=== PATIENT | female | born 1955 | race Caucasian/White ===

== ENCOUNTER 2018-12-27 09:12 | Inpatient (IN) | payer MEDICARE, MEDICAID ==
[~2018-12-27] VITALS: Ht 167.6 cm; Wt 86.6 kg
--- NOTE | ~2018-12-27 | D ---
[address] [address] DISCHARGE SUMMARY Name: GLORYANUP TRACEY Room: [address] IN M.R.#: [id number] Admission: 12/28/18 Attend Phys: Bradley Lyn MD, F Discharge: 12/29/18 Date of : 53 Report #: [id number] THIS REPORT FOR: //name// CC: Jazzy Crow DATE OF SERVICE: 12/29/2018 DISCHARGE DIAGNOSES: 1. Sick sinus syndrome. 2. Paroxysmal atrial fibrillation. CONSULTANTS: None. PROCEDURES: Implantation of permanent dual chamber pacemaker through the left subclavian vein. HISTORY OF PRESENT ILLNESS: The patient is a 63-year-old single white female who was brought to the outpatient department to undergo implantation of a permanent dual chamber pacemaker. The patient has a long history of paroxysmal atrial fibrillation. She apparently had a cardiac catheterization back in 2009 that showed no significant coronary artery disease. She has been on Rythmol for a number of years. She has never been anticoagulated because of a CHADS score of 0. She has never required cardioversion. Recently, she is noted to be bradycardic. She complained of fatigue and shortness of breath. Echocardiogram in 2017 showed an ejection fraction of 60%. Because of her symptomatic bradycardia, recommended she undergo permanent pacemaker insertion. PAST MEDICAL AND SURGICAL HISTORY: Otherwise significant for appendectomy, dissection of lymph nodes from her left axilla. She has no history of hypertension, diabetes, hyperlipidemia. HOME MEDICATIONS: Include aspirin, propafenone, Neurontin. ALLERGIES: SHE HAS INTOLERANCE TO CIPRO, OXYCODONE, ____. PHYSICAL EXAMINATION: GENERAL: A middle-aged female. VITAL SIGNS: Blood pressure 110/70, pulse is 44. HEENT: Mucous membranes moist. CHEST: Clear to auscultation. CARDIAC: Regular, bradycardia. ABDOMEN: Soft. EXTREMITIES: Had no edema. SKIN: [place] [address] DISCHARGE SUMMARY Name: GLORYANUP TRACEY Room: [address] IN [facility].#: [id number] Admission: 12/28/18 Attend Phys: Bradley Lyn MD, F Discharge: 12/29/18 Date of : 53 Report #: [id number] LABORATORY WORK: Showed a sodium of 140, potassium 3.8, creatinine 1.2. Liver function studies were normal. Cholesterol 196, triglyceride 96, HDL 60, LDL 117. TSH in 2013 was 4.0. White blood cell count 7.5, hemoglobin 14.7. HOSPITAL COURSE: The patient was brought to the outpatient department. She was taken to the cardiac catheterization lab and I implanted a permanent dual chamber MRI compatible Biotronik pacemaker. She tolerated the procedure well. The following day, the pacemaker was interrogated and found to be functioning normally. She was 100% paced. She was discharged to continue her home medications including propafenone 150 mg every 8 hours to prevent atrial fibrillation, aspirin 81 mg a day, Neurontin 100 mg 3 times a day for neuropathy. She is not to lift the left arm above her head for the next week. She is scheduled to return to see me in the Cardiology Clinic in 2 weeks for followup. She was to contact my office if she noticed any signs of infection. She was not to shower for 48 hours. She is felt to have a good prognosis from a cardiac standpoint. ADDENDUM After the patient had been discharged from the hospital, there appeared to be loss of atrial capture on the monitor. Review of the chest x-ray appeared to show dislodgement of the atrial pacing lead. It was decided that the patient needed to have repositioning of the atrial lead. Therefore, on the following day, the patient was taken back to the Interventional Radiology suite. The patient was given Ancef 2 grams intravenously prior to the procedure. The area over the permanent pacemaker in the left subclavicular area was cleaned with ChloraPrep and sterilely draped in usual fashion. The area was anesthetized with 1% lidocaine. A #10 blade was used to reopen the incision. Sutures were removed. The pacemaker pocket was opened using blunt dissection. The permanent pacemaker generator was removed from the pocket. The atrial lead was unscrewed from the pacemaker generator. The pacemaker lead sleeve was then loosened. The screw at the tip of the atrial lead was then pulled back into the atrial lead. A curved stylet was reinserted through this lead and the lead readvanced to the right atrial appendage. The lead was then screwed in place. Thresholds for sensing and capture were tested and felt to be adequate. The pacemaker pocket was irrigated with Ancef solution. The excess lead and generator then placed into the pacemaker pocket. The pocket was sutured closed and Skin Affix was reapplied over the incision. The patient tolerated the procedure well. The following day, both the atrial and ventricular leads were tested and felt to be adequate for chronic use. Repeat chest x-ray showed normal positioning of both the atrial and ventricular leads. The patient was instructed not to lift the left arm above her head for 7 days. She is not to shower for [address] [address] DISCHARGE SUMMARY Name: ANUP HOLDER Room: [address] IN .R.#: [id number] Admission: 12/28/18 Attend Phys: Bradley Lyn MD, F Discharge: 12/29/18 Date of : 53 Report #: [id number] Supposed to contact my office if she had shortness of breath, chest pain, syncope, bleeding. By: 0830 0920Davitrang Lyn MD, FACC /nt
[~2018-12-27 09:12] MED LIST: ACETAMINOPHEN-1 EAC1 PO; ASPIR 8181 MG PO; ASPIRIN325 PO; AUGMENTIN 875-1 EACH; COLACE100 MG PO; GABAPENTIN 100100 MG PO; GABAPENTIN100 MG; LOPRESSOR25 PO; MAALOX PLUS X; METOPROLOL TART25 MG PO; MIRALAX17 GM PO; MOBIC; MOBIC15 MG PO; MOBIC7.5 MG PO; NAPROXEN 500MG500 MG PO; PREDNISONE 20 M20 M1 PO; PROPAFENONE 15150 MG PO; RYTHMOL SR225 MG PO; RYTHMOL150 MG PO
[2018-12-27 09:30] VITALS: BP 145/61
[2018-12-27 09:59] LABS: HEMOGLOBIN 14.7 gm/dL (12.0-15.0); MCH 30.1 pg (26.0-34.0); MCHC 33.5 g/dL (28.0-37.0); MCV 89.8 fL (80.0-100.0); MPV 9.6 fl. (7.2-11.1); RBC 4.89 mil/uL (4.20-5.00); WBC 7.5 thou/uL (4.0-11.0)
[2018-12-27 10:18] LABS: APTT 27.3 Seconds (25.0-31.3); INR 0.9; PROTIME 9.6 Seconds (9.20-11.50)
[2018-12-27 10:20] LABS: ALBUMIN 3.8 g/dL (3.4-5.0); ALKALINE PHOSPHATASE 80 U/L (46-116); ANION GAP 7 mmol/L (7-16); BUN 27 mg/dL (7-18); CHLORIDE 105 mmol/L (98-107); CHOLESTEROL 196 mg/dL (<200); CO2 28 mmol/L (21-32); CREATININE 1.2 mg/dL (0.6-1.3); GLUCOSE 94 mg/dL (70-99); HDL CHOLESTEROL 60 mg/dL (>40); LDL CHOLESTEROL 117 mg/dL (<100); POTASSIUM 3.8 mmol/L (3.5-5.1); SGOT 19 U/L (15-37); SGPT 27 U/L (30-65); SODIUM 140 mmol/L (136-145); TC:HDL 3.3 Ratio (Not establshd); TOTAL BILIRUBIN 0.4 mg/dL (<0.1-1.0); TRIGLYCERIDE 96 mg/dL (<150); VLDL 19 mg/dL (<40)
[2018-12-27 10:21] LABS: SERUM ASSESSMENT Clear
[2018-12-27 13:15] VITALS: BP 134/77
[2018-12-27 13:30] VITALS: BP 130/87
--- NOTE | 2018-12-27 13:30 | EKG ---
[place] [address] ELECTROCARDIOGRAM REPORT Name: ANUP HOLDER Room: [facility]#: [id number] Admission: 12/27/18 Attend Phys: Bradley Lyn MD, F Discharge: Date of : 53 Report #: [id number] THIS REPORT FOR: //name// [facility] Test Date: 2018-12-27 Test Time: 09:41:53 Pat Name: ANUP HOLDER Department: Room: Gender: Turntable Worker: [facility] : 1955 Requested By: Bradley Lyn Order Number: [id number] Omar MD: Bradley Lyn Measurements Intervals [place] Rate: 43 P: 38 DE: 172 QRS: -1 QRSD: 102 T: 26 QT: 505 QTc: 428 Interpretive Statements Sinus bradycardia Compared to ECG 07/27/2017 12:05:50 No significant changes Electronically Signed On 12-27-2018 13:30:35 CDT by Bradley Lyn [email or web address] <ELECTRONICALLY SIGNED> By: Bradley Lyn MD, [facility] 12/27/18 1330 D: [id number] Bradley Lyn MD, FACC /EPI
[2018-12-27 13:45] VITALS: BP 142/85
[2018-12-27 14:00] VITALS: BP 127/64
--- NOTE | 2018-12-27 16:33 | CARD ---
[address] [address] CARDIAC CATH REPORT Name: ANUP HOLDER Room: [address] Yahir Marquez#: [id number] Admission: 12/27/18 Attend Phys: Bradley Lyn MD, F Discharge: Date of : 53 Report #: [id number] THIS REPORT FOR: //name// APPROVED REPORT Study performed: 12/27/2018 10:35:28 Patient Status: Out-Patient Room #: Event Personnel: Bradley Lyn Salvager Helper, Melissa Richards RN RN, Nilesh CortezIS Scrub, Lauren Reyes RN Monitor Exam: Insertion of Dual Chamber Permanent Pacemaker Indications: Sick Sinus Syndrome/Tachy Jovany Syndrome The patient is a 63 year-old female with a history of Dyspnea. Patient Info Anticoagulant Therapy: asa Conscious Sedation Start time: 11:19 End Time: 12:41 Fentanyl 75 mcg Versed 4 mg Implanted Devices: permanent dual chamber mri compatible pacemaker generator and leads Procedure The patient underwent informed consent. We discussed the details of the procedure including the risks, which include, but not limited to bleeding, infection, vascular damage, cardiac perforation, and pneumothorax. She understood these risks and was willing to proceed. As such, she was brought to the EP/Cardiac Catheterization laboratory in a fasting and sedated state and prepped and aped in a sterile fashion, received IV antibiotics prior to initiation of the procedure and a venogram was performed showing patency of the left axillary vein. The patient underwent conscious sedation, with no related complications. The patient was brought to the EP/Cardiac Catheterization laboratory and the left chest and shoulder were prepped and draped in a sterile manner. During this case, Fluoroscopy and low osmolar contrast were used for imaging. The left subclavian region was infiltrated with 2% Lidocaine subcutaneous anesthesia. A transverse incision [place] [address] CARDIAC CATH REPORT Name: ANUP HOLDERARET Room: [address] M.R.#: [id number] Admission: 12/27/18 Attend Phys: Bradley Lyn MD, F Discharge: Date of : 53 Report #: [id number] upper chest cavity. The subcutaneous pocket was formed via blunt dissection. Percutaneous venous access was achieved and an introducer sheath was inserted into the left Subclavian vein. Sheaths were positions using the modified Seldinger technique Through the introducer sheaths the atrial and ventricular lead wires were positioned in the right atrial appendage and right ventricular apex respectively. Utilizing fluoroscopic guidance, the atrial and ventricular lead wires were advanced over the wires and positioned in the right atria and right ventricle respectively. Capturing and sensing thresholds were verified. Electrode Parameters P Wave: 2.8 mv R Wave: 8.8 mv Atrial Threshold: 0.6 v @ 0.4 ms Ventricular Threshold: 0.8 v @ 0.4 ms Atrial Resistance: 464 ohm Ventricular Resistance: 874 ohm Dual Chamber The atrial and ventricular leads were then secured using 0 silk sutures. The subcutaneous pocket was irrigated with ancef antibiotic solution.The atrial and ventricular leads were attached to the appropriate receptacles on the pulse generator and set screws firmly tightened to insure adequate contact and stability. The lead and pulse generator were placed into the subcutaneous pocket. Sharp and sponge counts were confirmed to be correct. At this time the pocket was closed subcutaneously with a 0 Vicryl and the skin was closed with a 4.0 Vicryl. The operative site was dressed in sterile fashion with skin affix and the patient was transferred to the floor in stable condition. Complications The patient tolerated the procedure well and there were no complications associated with the procedure. Findings Specimens Removed: No Estimated Blood Loss: 5 [place] [address] CARDIAC CATH REPORT Name: ANUP HOLDER Room: [address]#: [id number] Admission: 12/27/18 Attend Phys: Bradley Lyn MD, F Discharge: Date of : 53 Report #: [id number] Conclusion successful placement of a dual chamber pacemaker and leads <ELECTRONICALLY SIGNED> By: Bradley Lyn MD, [facility] 12/27/18 1633 1633 1633Dchepe Lyn MD, FACC /INF
[2018-12-27 19:20] VITALS: BP 115/76
[2018-12-28] VITALS (7 sets, daily range): BP systolic 93–132; BP diastolic 53–70
--- NOTE | 2018-12-28 07:24 | NUR ---
VITALS WNL. SEE MAR. SEE CHARTING. HOURLY ROUNDING FOR SAFETY.
--- NOTE | 2018-12-28 09:47 | EKG ---
[place] [address] ELECTROCARDIOGRAM REPORT Name: ANUP HOLDER Room: [address]R.#: [id number] Admission: 12/27/18 Attend Phys: Bradley Lyn MD, F Discharge: Date of : 53 Report #: [id number] THIS REPORT FOR: //name// [facility] Test Date: 2018-12-28 Test Time: 07:39:42 Pat Name: NAUP HOLDER Department: Room: [address] Gender: F Loom Checker: GLADYS : 1955 Requested By: Bradley Lyn Order Number: [id number] Reading MD: Tod Mejia Measurements Intervals [place] Rate: 60 P: 0 OK: 344 QRS: -31 QRSD: 187 T: 126 QT: 500 QTc: 500 Interpretive Statements Ventricular-paced complexes No further rhythm analysis attempted due to paced rhythm Prolonged OK interval Compared to ECG 12/27/2018 09:41:53 Paced rhythm Electronically Signed On 12-28-2018 9:46:55 CDT by Tod Mejia [email or web address] <ELECTRONICALLY SIGNED> By: Tod Mejia MD, FACC 12/28/18 0946 0739 0739 Tod Mejia MD, FAC /EPI
--- NOTE | 2018-12-28 09:47 | EKG ---
[place] [address] ELECTROCARDIOGRAM REPORT Name: ANUP HOLDER Room: [address] M.R.#: [id number] Admission: 12/27/18 Attend Phys: Bradley Lyn MD, F Discharge: Date of : 53 Report #: [id number] THIS REPORT FOR: //name// [facility] Test Date: 2018-12-28 Test Time: 07:42:11 Pat Name: ANUP HOLDER Department: Room: [address] Gender: F Mail Processing Associate: GLADYS : 1955 Requested By: Bradley Lyn Order Number: [id number] Omar MD: Tod Mejia Measurements Intervals [place] Rate: 86 P: 99 [place]: 433 QRS: -32 QRSD: 198 T: 131 QT: 472 QTc: 565 Interpretive Statements Ventricular-paced complexes No further analysis attempted due to paced rhythm Compared to ECG 12/27/2018 09:41:53 Sinus bradycardia no longer present Electronically Signed On 12-28-2018 9:47:05 CDT by Tod Mejia [email or web address] <ELECTRONICALLY SIGNED> By: Tod Mejia MD, FACC 12/28/18 0947 0742 0742 Tod Mejia MD, [facility] /EPI
--- NOTE | 2018-12-28 10:44 | NUR ---
ASSUMED PT CARE AT 0700 PT IS ALERT AND ORIENTED X 4 PT STATES HAS SOME ACHINESS IN LEFT SHOULDER PT HAD PACEMAKER PLACED 12-27-18 PT LEFT ARM IS IN SLING, PT BLOOD PRESSURE LOW PT IS NOT ON BLOOD PRESSURE MEDS NOTIFIED CARDIOLOGY WHO ORDERED FLUIDS STARTED WHICH THIS NURSE STARTED, PT WILL NOT DISCHARGE TODAY PACEMAKER NEEDS ADJUSTED, PT IS VPACED ON THE MONITOR, PT IS UP AD HARDY PT IS NOT A FALL RISK, WILL CONTINUE TO MONITOR
--- NOTE | 2018-12-28 11:55 | NUR ---
Pt is A&O. Resides at home with a friend. Independent and active. No DME. No hx of HH or SNF. Pt states that she got a pacemaker yesterday, but has to have the pacemaker replaced today, Pt should be ready to dc tomorrow to home. No needs anticipated.
--- NOTE | 2018-12-28 12:46 | H ---
[address] [address] HISTORY AND PHYSICAL Name: ANUP HOLDER Room: [address] Jimmy#: [id number] Admission: 12/27/18 Attend Phys: Bradley Lyn MD, F Discharge: Date of : 53 Report #: [id number] THIS REPORT FOR: //name// CC: Jazzy Crow DATE OF SERVICE: 12/27/2018 HISTORY OF PRESENT ILLNESS: The patient is a 63-year-old single white female who I was asked to see in the hospital after she was noted to be bradycardic. The patient has a long history of paroxysmal atrial fibrillation for several years. She apparently has never been hospitalized. She has been on Rythmol for several years. She has never been anticoagulated since she had a CHADS-VASc score of 0. She stays fairly active. I actually saw her in the office in October when she was noted to have a heart rate in the 40s. 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 We recommended a pacemaker. The patient wanted to wait at that time. The patient currently is in need of a colonoscopy. I felt she would require pacemaker prior to proceeding with the procedure. It was therefore decided to admit the patient at this time for pacemaker insertion. She does note some exertional dyspnea, but no chest pain, palpitations. She denies any significant lightheadedness or syncope. PAST MEDICAL HISTORY: Significant for appendectomy, lymph node dissection from her left axilla, tubal ligation. She has no history of hypertension, diabetes, hyperlipidemia. ONLY MEDICATIONS: Include aspirin, Neurontin, Rythmol 150 mg every 8 hours. ALLERGIES: SHE HAS A PREVIOUS INTOLERANCE TO CEPHALEXIN, CIPRO, OXYCODONE, SULFA DRUGS. FAMILY HISTORY: Her mother had a pacemaker. SOCIAL HISTORY: She is single, lives by herself in [place], [place]. 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 Quit smoking in 2004. No alcohol abuse. REVIEW OF SYSTEMS: She has had no history of stroke. She does have a history of asthma. No history of peptic ulcer disease, liver disease, kidney disease, cancer, psychiatric illness, chronic skin condition. PHYSICAL EXAMINATION: GENERAL: Middle-aged female. VITAL SIGNS: Blood pressure 130/70, pulse 44, respirations nonlabored. HEENT: She is anicteric, conjunctiva pink. [place] [address] HISTORY AND PHYSICAL Name: ANUP HOLDER Room: [address] M.R.#: [id number] Admission: 12/27/18 Attend Phys: Bradley Lyn MD, F Discharge: Date of : 53 Report #: [id number] NECK: Veins nondistended. No carotid bruits. Neck is supple. CHEST: Clear to auscultation. CARDIOVASCULAR: Regular, bradycardia, no significant murmur. ABDOMEN: Soft. EXTREMITIES: Have no edema. Dorsalis pedis pulse 2+ bilaterally. SKIN: Warm, dry. NEUROLOGIC: Nonfocal. LABORATORY DATA: The patient had a TSH that was 2.5 in October. She had a hemoglobin in 10/2017 of 13.7. Lipid profile in October included cholesterol 158, triglyceride 107, HDL 48, LDL 90. BUN 23, creatinine 1.0, potassium 4.2. Previous heart catheterization in 2009 showed no significant coronary artery disease. Previous 30-day monitor in 2016 showed no recurrent atrial fibrillation, previous screening showed no carotid stenosis. IMPRESSION AND RECOMMENDATIONS: 1. Sick sinus syndrome. Recommend permanent pacemaker. 2. Paroxysmal atrial fibrillation. No clinical recurrences on Rythmol. Once the patient turned 64, I would consider anticoagulation. 3. Degenerative joint disease. The patient had a previous injection in her knee. <ELECTRONICALLY SIGNED> By: Bradley Lyn MD, FACC 12/28/18 1246 1055 1204Dchepe Lyn MD, FACC /nt
--- NOTE | 2018-12-28 14:27 | NUR ---
Pt is A&O. Resides at home with a friend. Active and independent. No DME. No hx of HH or SNF. Per Pt, pacemaker placed yesterday, plan to have the pacemaker wire replaced today and will be ready to dc home tomorrow. No needs
[2018-12-29] VITALS: BP 123/60
[2018-12-29 04:00] VITALS: BP 131/71
--- NOTE | 2018-12-29 06:03 | NUR ---
VITALS WNL. SEE MAR. SEE CHARTING. HOURLY ROUNDING FOR SAFETY.
[2018-12-29 08:00] VITALS: BP 131/74
--- NOTE | 2018-12-29 08:26 | NUR ---
ASSUMED PT CARE AT 0700 PT IS ALERT AND ORIENTED X 4 PT DENIES PAIN OR SOA ON RA, PT IS UP AD HARDY PT IS NOT A FALL RISK, PT IS SR ON THE MONITOR, PT MAY DISCHARGE TODAY AWAITING CARDIOLOGY, WILL CONTINUE TO MONITOR
[2018-12-29 08:45] VITALS: BP 131/71
[2018-12-29 10:39] VITALS: BP 131/71
--- NOTE | 2018-12-29 16:33 | CARD ---
[address] [address] CARDIAC CATH REPORT Name: ANUP HOLDER Room: [address] IN ..#: [id number] Admission: 12/28/18 Attend Phys: Bradley Lyn MD, F Discharge: 12/29/18 Date of : 53 Report #: [id number] THIS REPORT FOR: //name// APPROVED REPORT Study performed: 12/28/2018 14:56:03 Patient Status: In-Patient Room #: Exam: reposition atrial pacing lead Indications: atrial lead failure to capture The patient is a 63 year-old female with a history of Atrial Fibrillation. Implanted Devices: none Explanted Devices: none Procedure The patient underwent informed consent. We discussed the details of the procedure including the risks, which include, but not limited to bleeding, infection, vascular damage, cardiac perforation, and pneumothorax. She understood these risks and was willing to proceed. As such, she was brought to the EP/Cardiac Catheterization laboratory in a fasting and sedated state and prepped and draped in a The patient underwent conscious sedation, with no related complications. The patient was brought to the EP/Cardiac Catheterization laboratory and the left chest and shoulder were prepped and draped in a sterile manner. The left subclavian region was infiltrated with 2% Lidocaine subcutaneous anesthesia. A transverse incision was made in the left upper chest cavity. Capturing and sensing thresholds were verified. The atrial lead was unscrewed from the generaor. The sleeve sutures were removed. The lead screw was withdrawn into the lead. Using a curved stylet, the atrial lead was repositioned in the right atrial appendage. Electrode Parameters P Wave: 1.4 mv R Wave: 7.1 mv Atrial Threshold: 1.0 v @ 0.4 ms Ventricular Threshold: 0.6 v @ 0.4 ms Atrial Resistance: 663 ohm Ventricular Resistance: 780 [place] [address] CARDIAC CATH REPORT Name: ANUP HOLDER Room: [address] IN ..#: [id number] Admission: 12/28/18 Attend Phys: Bradley Lyn MD, F Discharge: 12/29/18 Date of : 53 Report #: [id number] Dual Chamber The atrial and ventricular leads were then secured using 0 silk sutures. The subcutaneous pocket was irrigated with ancef antibiotic solution.The atrial and ventricular leads were attached to the appropriate receptacles on the pulse generator and set screws firmly tightened to insure adequate contact and stability. The lead and pulse generator were placed into the subcutaneous pocket. Sharp and sponge counts were confirmed to be correct. At this time the pocket was closed subcutaneously with a 0 Vicryl and the skin was closed with a 4.0 Vicryl. The operative site was dressed in sterile fashion with skin affix and the patient was transferred to the floor in stable condition. Complications The patient tolerated the procedure well and there were no complications associated with the procedure. Findings Specimens Removed: No Estimated Blood Loss: minimal Conclusion successful repositioning of the atrial pacing lead. <ELECTRONICALLY SIGNED> By: Bradley Lyn MD, FACC 12/29/18 1632 1632 1632Davitrang Lyn MD, FACC /INF
--- NOTE | 2018-12-30 12:28 | EKG ---
[place] [address] ELECTROCARDIOGRAM REPORT Name: ANUP HOLDER Room: [address] [place] .R.#: [id number] Admission: 12/28/18 Attend Phys: Bradley Lyn MD, F Discharge: 12/29/18 Date of : 53 Report #: [id number] THIS REPORT FOR: //name// [facility] Test Date: 2018-12-29 Test Time: 07:45:17 Pat Name: NAUP HOLDER Department: Room: [address] Gender: F Competitive Intelligence Manager: GLADYS : 1955 Requested By: Bradley Lyn Order Number: [id number] Reading MD: Arley Vincent Measurements Intervals [place] Rate: 62 P: [place]: 187 QRS: -11 QRSD: 102 T: -1 QT: 447 QTc: 454 Interpretive Statements Atrial-paced rhythm Abnormal T, consider ischemia, anterior leads Compared to ECG 12/28/2018 07:42:11 T-wave abnormality now present Possible ischemia now present Electronically Signed On 12-30-2018 12:28:08 CDT by Arley Vincent [email or web address] <ELECTRONICALLY SIGNED> By: Arley Vincent MD, FAC 12/30/18 1228 0745 0745 Arley Vincent MD, FAC /EPI
== END 2018-12-29 13:14 | disposition home or self-care (01) | DRG 243 ==
LOC: M.CL 09:12 → M.TBA-CV 14:24 → M.2W 14:24
PROVIDERS: ADMIT Internal Medicine Cardiovascular Disease
PROC: 0JH606Z Insertion of Pacemaker, Dual Chamber into Chest Subcutaneous Tissue and Fascia, Open Approach (ICD-10-PCS; principal; 2018-12-27)
PROC: 02HK3JZ Insertion of Pacemaker Lead into Right Ventricle, Percutaneous Approach (ICD-10-PCS; principal; 2018-12-27)
PROC: 02H63JZ Insertion of Pacemaker Lead into Right Atrium, Percutaneous Approach (ICD-10-PCS; principal; 2018-12-27)
PROC: 02WA3MZ Revision of Cardiac Lead in Heart, Percutaneous Approach (ICD-10-PCS; 2018-12-28)
PROC: B51N1ZZ Fluoroscopy of Left Upper Extremity Veins using Low Osmolar Contrast (ICD-10-PCS; 2018-12-28)
DX: I49.5 Sick sinus syndrome (principal); D68.69 Other thrombophilia; I48.0 Paroxysmal atrial fibrillation; I10 Essential (primary) hypertension; M19.90 Unspecified osteoarthritis, unspecified site; E11.9 Type 2 diabetes mellitus without complications; E78.5 Hyperlipidemia, unspecified; Z88.6 Allergy status to analgesic agent; Z88.1 Allergy status to other antibiotic agents; Z88.2 Allergy status to sulfonamides; Z90.49 Acquired absence of other specified parts of digestive tract; Z82.49 Family history of ischemic heart disease and other diseases of the circulatory system

== ENCOUNTER → 2019-04-10 | Outpatient (CLI) | payer MEDICARE, MEDICAID ==
--- NOTE | 2019-04-10 14:01 | CARDNUC ---
[place] [address] CARDIAC NUCLEAR IMAGING REPORT Name: GLORYANUP TRACEY Room: [facility]#: [id number] Admission: 04/10/19 Attend Phys: Tod Mejia, Discharge: Date of : 53 Date of Service: 04/10/19 1401 Report #: [id number] THIS REPORT FOR: //name// APPROVED REPORT Imaging Protocol: Rest Tc-99m/Stress Tc-99m 1 day Study performed: 04/10/2019 09:30:00 Indication: Chest pain Patient Location: Out-Patient Stress Tech: Opal Ventura Stress Nurse: Brenna Jacome RN NM Tech:KATY Deal Ht: 5 ft 6 in Wt: 196 lbs BSA: 1.98 m2 BMI: 31.63 Medical History Medical History: Angina, Atrial Fibrillation, CAD non obstructive, Fatigue, Former Smoker, Obesity , Asthma. Medications: Cardizem, ASA 81 Mg, Rythmol Allergies: Class II Narcotics, Keflex, Cipro, Cephalexin, Tramadol. Cardiac Risk Factors: Age, FHX of CAD, Past Smoker, HX AFib. Previous Cardiac Procedures: Catherization 2009, AFib. Pretest Chest Pain Characteristics: No chest pain Exercise History: Indeterminate Physical Disabilities: Torn Meniscus. Meds Held (24 hrs): None Resting Data Rest SPECT myocardial perfusion imaging was performed in supine position 30 minutes following the intravenous injection of 10.8 mCi of Tc-99m Sestamibi. Time of rest injection: 954 Date: 04/10/2019 The images were gated to evaluate regional wall motion and calculate left ventricular ejection fraction. Administration Route: IV Administration Site: Right AC Pharmacologic Stress Pharmacologic stress test was performed by injecting Regadenoson 0.4 mg IV push over 10-15 seconds immediately followed by the intravenous injection of 33.7 mCi of Tc-99m Sestamibi. Time of stress injection: 1204 Date: 04/10/2019 [place] [address] CARDIAC NUCLEAR IMAGING REPORT Name: ANUP HOLDER Room: [facility]#: [id number] Admission: 04/10/19 Attend Phys: Tod Mejia, Discharge: Date of : 53 Date of Service: 04/10/19 1401 Report #: [id number] Administration Route: IV Administration Site: Right AC Gated Stress SPECT was performed 40 minutes after stress injection. The images were gated to evaluate regional wall motion and calculate left ventricular ejection fraction. Prone imaging was performed. Stress Test Details Stress Test: Pharmacologic stress testing performed using 0.4 mg of regadenoson per 5 mL given IV over 10 seconds. Reason for pharmacologic stress test: Torn Meniscus.. HR Max Heart Rate (APMHR): 156 bpm Resting HR: 72 bpm Target HR (85% APMHR): 132 bpm Max HR Achieved: 79 bpm % of APMHR: 50 Recovery HR: 74 bpm BP Resting BP: 109/76 mmHg Max BP: 111/76 mmHg Recovery BP: 173/97 mmHg ECG Resting ECG: atrial pacing with normal AV conduction. No significant ST or segment or T wave abnormalities. Stress ECG: atrial pacing with normal AV conduction. No significant ST segment or T wave abnormalities. ST Change: None Arrhythmia: None Recovery ECG: atrial pacing with normal AV conduction. No significant ST segment or T-wave abnormalities. Recovery ST Change: None Recovery Arrhythmia: None Clinical Reason for Termination: Completed protocol Stress Symptoms: Dyspnea, Abdominal discomfort, Flushed/Warmth. Exercise duration: 00 min 00 sec Exercise capacity: 1.00 METs The patient tolerated Lexiscan infusion without significant cardiac symptoms. Nurse Comments 63 year old female presented with recent c/o CP [place] [address] CARDIAC NUCLEAR IMAGING REPORT Name: ANUP HOLDER Room: [facility]#: [id number] Admission: 04/10/19 Attend Phys: Tod Mejia, Discharge: Date of : 53 Date of Service: 04/10/19 1401 Report #: [id number] Patient tolerated sitting Lexiscan well. Recovery unremarkable with PO Caffeine, effective. Patient was escorted by staff to Nuclear Medicine for images. Patient was stable with no complaints at that time. Stress ECG Conclusion The baseline 12-lead EKG shows atrial pacing with normal AV conduction. There were no prescription ST or T wave abnormalities on baseline EKG. EKGs obtained during and post Lexiscan infusion show atrial pacing with no significant ST or T wave changes when compared to baseline. There were no stress-induced arrhythmias. Study Quality Study: Good Artifact: No artifact Study Data At rest, the left ventricular ejection fraction was 74%.. Post stress, the left ventricular ejection was 75%.. TID = 1.13. Perfusion Normal left ventricular perfusion. Wall Motion Normal left ventricular wall motion. Nuclear Conclusion ECG Findings: negative for ischemia Clinical Findings: negative for ischemia Nuclear Findings: negative for ischemia Exercise Capacity: not assessed Left Ventricular Function: normal Risk Study: low Myocardial perfusion images obtained at rest and post Lexiscan stress show uniform uptake of the radioisotope throughout the myocardium with no defect. Left ventricular systolic function is normal on gated studies. This is a low risk study. <Conclusion> The baseline 12-lead EKG shows atrial pacing with normal AV conduction. There were no prescription ST or T wave abnormalities on baseline EKG. EKGs obtained during [place] [address] CARDIAC NUCLEAR IMAGING REPORT Name: ANUP HOLDER [facility] [id number] Admission: 04/10/19 Attend Phys: Tod Mejia, Discharge: Date of : 53 Date of Service: 04/10/19 1401 Report #: [id number] atrial pacing with no significant ST or T wave changes when compared to baseline. There were no stress-induced arrhythmias. <ELECTRONICALLY SIGNED> By: Tod Mejia MD, FACC 04/10/191400 00 00 Tod Mejia MD, FACRamon /INF
== END ==
LOC: M.NUC 03-27 10:56 → M.CRD 09:00 → M.NUC 09:28
DX: I25.10 Atherosclerotic heart disease of native coronary artery without angina pectoris (principal); I48.91 Unspecified atrial fibrillation; J45.909 Unspecified asthma, uncomplicated; Z79.899 Other long term (current) drug therapy; Z88.8 Allergy status to other drugs, medicaments and biological substances; Z88.2 Allergy status to sulfonamides; Z87.891 Personal history of nicotine dependence

== ENCOUNTER → 2019-05-17 | Outpatient (CLI) | payer MEDICARE, MEDICAID ==
[2019-05-17 11:39] LABS: ABSOLUTE BASOPHILS 0.1 thou/uL (0.0-0.2); ABSOLUTE EOSINOPHILS 0.1 thou/uL (0.0-0.7); ABSOLUTE LYMPHOCYTES 2.2 thou/uL (0.8-5.3); ABSOLUTE MONOCYTES 0.8 thou/uL (0.0-1.2); ABSOLUTE NEUTROPHILS 6.9 thou/uL (1.6-8.1); BASOPHILS 0.6 %; EOSINOPHILS 1.4 %; HEMATOCRIT 44.3 % (37.0-47.0); HEMOGLOBIN 15.2 gm/dL (12.0-15.0); LYMPHOCYTES 21.9 %; MCH 30.8 pg (26.0-34.0); MCHC 34.2 g/dL (28.0-37.0); MONOCYTES 7.4 %; MPV 8.5 fl. (7.2-11.1); NUCLEATED RBCS 0 /100WBC; PLATELET COUNT* 279 thou/uL (150-400); POLYS 68.7 %; RBC 4.93 mil/uL (4.20-5.00); RDW-CV 12.7 % (10.5-14.5); WBC 10.1 thou/uL (4.0-11.0)
[2019-05-17 11:53] LABS: ALBUMIN 3.6 g/dL (3.4-5.0); CALCIUM 9.3 mg/dL (8.5-10.1); POTASSIUM 3.7 mmol/L (3.5-5.1); TOTAL BILIRUBIN 0.3 mg/dL (<0.1-1.0)
== END ==
LOC: M.LAB 11:16 → M.CT 13:00 → M.LAB 05-18 08:00 → M.CT 05-18 09:30
PROVIDERS: Nurse Practitioner Adult Health
DX: K57.30 Diverticulosis of large intestine without perforation or abscess without bleeding (principal); M51.86 Other intervertebral disc disorders, lumbar region; N83.8 Other noninflammatory disorders of ovary, fallopian tube and broad ligament; Z79.899 Other long term (current) drug therapy

== ENCOUNTER 2019-05-24 10:06 | Inpatient (IN) | payer MEDICARE, MEDICAID ==
[~2019-05-24] VITALS: Ht 167.6 cm; Wt 85.3 kg
[2019-05-24 10:22] VITALS: BP 122/86
[2019-05-24 11:08] LABS: ABSOLUTE BASOPHILS 0.1 thou/uL (0.0-0.2); ABSOLUTE EOSINOPHILS 0.1 thou/uL (0.0-0.7); ABSOLUTE LYMPHOCYTES 2.2 thou/uL (0.8-5.3); ABSOLUTE MONOCYTES 0.5 thou/uL (0.0-1.2); ABSOLUTE NEUTROPHILS 5.6 thou/uL (1.6-8.1); BASOPHILS 0.7 %; EOSINOPHILS 1.2 %; HEMATOCRIT 44.2 % (37.0-47.0); HEMOGLOBIN 15.3 gm/dL (12.0-15.0); LYMPHOCYTES 25.9 %; MCH 30.8 pg (26.0-34.0); MCHC 34.5 g/dL (28.0-37.0); MCV 89.2 fL (80.0-100.0); MONOCYTES 6.1 %; MPV 7.7 fl. (7.2-11.1); NUCLEATED RBCS 0 /100WBC; PLATELET COUNT* 255 thou/uL (150-400); POLYS 66.1 %; RBC 4.96 mil/uL (4.20-5.00); RDW-CV 12.8 % (10.5-14.5); WBC 8.5 thou/uL (4.0-11.0)
[2019-05-24 11:26] LABS: ALBUMIN 3.7 g/dL (3.4-5.0); ALKALINE PHOSPHATASE 66 U/L (46-116); BUN 16 mg/dL (7-18); CALCIUM 9.1 mg/dL (8.5-10.1); CO2 26 mmol/L (21-32); CREATININE 0.9 mg/dL (0.6-1.3); GLUCOSE 93 mg/dL (70-99); LIPASE 173 U/L (73-393); SGOT 27 U/L (15-37); SGPT 39 U/L (30-65); TOTAL BILIRUBIN 0.4 mg/dL (<0.1-1.0); TOTAL PROTEIN 6.7 g/dL (6.4-8.2); TROPONIN-I LEVEL <0.06 ng/mL (<0.06)
[2019-05-24 11:46] LABS: ANION GAP 9 mmol/L (7-16); CHLORIDE 104 mmol/L (98-107); POTASSIUM 3.5 mmol/L (3.5-5.1); SODIUM 139 mmol/L (136-145)
[2019-05-24 12:22] LABS: URINE BILIRUBIN NEGATIVE (Negative); URINE BLOOD NEGATIVE (Negative); URINE CLARITY CLEAR; URINE COLOR YELLOW; URINE GLUCOSE-RANDOM NEGATIVE (Negative); URINE KETONES NEGATIVE (Negative); URINE LEUKOCYTES-REFLEX NEGATIVE (Negative); URINE NITRITE-REFLEX NEGATIVE (Negative); URINE PROTEIN NEGATIVE (Negative); URINE SPECIFIC GRAVITY <= 1.005 (1.005-1.030); URINE UROBILINOGEN 0.2 E.U./dl (0.2-1.0)
[2019-05-24 12:58] LABS: APTT 25.7 Seconds (25.0-31.3); PROTIME 9.8 Seconds (9.20-11.50)
[2019-05-24] MEDS ORDERED: CARDIZEM CD120 MG PO (12:58)
[2019-05-24] MEDS ORDERED: FLAGYL500 M1 PO (12:58)
[2019-05-24] MEDS ORDERED: AUGMENTIN 500-1 EACH PO (12:59)
[2019-05-24] MEDS ORDERED: AMITIZA 24 MCG24 MC1 PO (12:59)
--- NOTE | 2019-05-24 14:36 | EKG ---
[place] [address] ELECTROCARDIOGRAM REPORT Name: ANUP HOLDER Room: [facility]-9 ADM IN [facility].#: [id number] Admission: 05/24/19 Attend Phys: Karen Pinto Discharge: Date of : 53 Report #: [id number] THIS REPORT FOR: //name// [facility] ED Test Date: 2019-05-24 Test Time: 10:57:23 Pat Name: ANUP HOLDER Department: Room: [facility] Gender: F Editorial Assistant: : 1955 Requested By: Nevin Baez Order Number: [id number] MD: Bradley Lyn Measurements Intervals [place] Rate: 72 P: ID: 37 QRS: 4 QRSD: 108 T: 16 QT: 409 QTc: 448 Interpretive Statements Atrial-paced complexes Consider anterior infarct Baseline wander in lead(s) II,aVF,V1 Compared to ECG 12/29/2018 07:45:17 T-wave abnormality no longer present Possible ischemia no longer present Electronically Signed On 05-24-2019 14:36:27 CDT by Bradley Lyn [email or web address] <ELECTRONICALLY SIGNED> By: Bradley Lyn MD, FAC 05/24/19 1436 1057 1057 Bradley Lyn MD, FAC /EPI
[2019-05-24 18:19] VITALS: BP 112/67
--- NOTE | 2019-05-24 19:45 | NUR ---
PATIENT ARRIVED TO UNIT AT 1835. ALERT AND ORIENTED X4. VSS ON ROOM AIR. PATIENT EDUCATED ON FALL PROTOCOLS, VERBALIZED AGREEMENT, AND SIGNED FALL AGREEMENT. BEDSIDE COMMODE PLACED NEXT TO BED, PATIENT STEADY ENOUGH TO USE IT SAFELY. FLUIDS INFUSED ORDERED. PATIENT ORIENTED TO ROOM AND INSTRUCTED TO USE CALL LIGHT FOR NEEDS. WILL CONTINUE TO MONITOR.
[2019-05-24 20:00] VITALS: BP 130/78
[2019-05-25] VITALS: BP 112/70
--- NOTE | 2019-05-25 06:00 | NUR ---
Alert and oriented x 4. She has not had any dizziness or nausea this shift. 2 of her home meds started last evening and her other home meds were ordered by Dr Mcgrath for today. She has been getting up independently to the bedside commode and doing well. Vitals are stable. Shehas slept well.
[2019-05-25] MEDS ORDERED: TRANSDERM-SCOP1 EACH TRANSDERM (12:55)
[2019-05-25 16:51] VITALS: BP 129/73
--- NOTE | 2019-05-25 17:23 | NUR ---
PT.TO BE DISCHARGED TODAY. SHE SAID SHE WAS FEELING BETTER. SHE SAID SHE USES NO DME AND NO HX OF HH. SHE HAS FOLLOWED WITH [facility] IN THE PAST FOR [facility] AND HAS AN APPT. SCHEDULED WITH THEM NEXT WEEK. SHE LIVES WITH HER FRIEND,ANDREA AND HER PARENTS.
--- NOTE | 2019-05-25 18:11 | NUR ---
ASSUMED CARE OF PATIENT AT APPROX 0730. ALERT AND ORIENTED X4. ASSESSMENT COMPLETED AND CHARTED. VSS ON ROOM AIR. COMPLIANT OF BACK PAIN MANAGED WITH TRAMADOL. NO OTHER COMPLAINTS THIS SHIFT. PATIENT UP AD HARDY AND AMBULATING STEADILY. HOURLY ROUNDS COMPLETED. CALL LIGHT WITHIN REACH. WILL CONTINUE TO MONITOR.
--- NOTE | 2019-05-25 18:16 | NUR ---
ASSUMED CARE OF PATIENT AT APPROX 0730. ALERT AND ORIENTED X4. ASSESSMENT COMPLETED AND CHARTED. VSS ON ROOM AIR. NO COMPLAINTS OF PAIN, NAUSEA, SOA, OR DIZZINESS THIS SHIFT. PATIENT UP AD HARDY IN THE ROOM AND CURRENTLY WAITING ON HER RIDE TO GO HOME. CALL LIGHT PLACED IN REACH. HOURLY ROUNDS COMPLETED. WILL CONTINUE TO MONITOR.
--- NOTE | 2019-05-26 11:19 | NUR ---
PLEASE NOTE. P.T. ORDERS RECEIVED. PT DISCHARGED HOME BEFORE P.T. EVAL AND TREAT COULD BE INITIATED.
== END 2019-05-25 18:45 | disposition home or self-care (01) | DRG 149 ==
LOC: M.ERS 10:06 → M.TBA-ER 14:17 → M.ORTHSURG 14:17
PROVIDERS: Nurse Practitioner Family; ADMIT Family Medicine
DX: H81.399 Other peripheral vertigo, unspecified ear (principal); K57.32 Diverticulitis of large intestine without perforation or abscess without bleeding; J45.909 Unspecified asthma, uncomplicated; I25.10 Atherosclerotic heart disease of native coronary artery without angina pectoris; I48.91 Unspecified atrial fibrillation; J44.9 Chronic obstructive pulmonary disease, unspecified; I49.5 Sick sinus syndrome; G89.29 Other chronic pain; M54.9 Dorsalgia, unspecified; M19.90 Unspecified osteoarthritis, unspecified site; Z95.0 Presence of cardiac pacemaker; Z88.6 Allergy status to analgesic agent; Z88.1 Allergy status to other antibiotic agents; Z88.2 Allergy status to sulfonamides; Z88.8 Allergy status to other drugs, medicaments and biological substances; Z87.891 Personal history of nicotine dependence

== ENCOUNTER 2021-04-12 10:15 | Emergency (ER) | payer MEDICARE, MEDICAID ==
[~2021-04-12] VITALS: Ht 167.6 cm; Wt 83.9 kg
[~2021-04-12 10:15] MED LIST changes: +AMITIZA 24 MCG24 MC1 PO; +AUGMENTIN 500-1 EACH PO; +CARDIZEM CD120 MG PO; +FLAGYL500 M1 PO; +TRANSDERM-SCOP1 EACH TRANSDERM
[2021-04-12] MEDS ORDERED: ELIQUIS2.5 MG PO (10:35)
[2021-04-12] MEDS ORDERED: TRULANCE3 MG PO (10:36)
[2021-04-12] MEDS ORDERED: BENTYL 10 MG CA10 M1 PO (10:36)
[2021-04-12 11:20] VITALS: BP 126/82
[2021-04-12] MEDS ORDERED: PREDNISONE 20 M20 M1 PO ×2 (11:22→11:42)
[2021-04-12] MEDS ORDERED: ZPAK PO ×2 (11:22→11:42)
== END 2021-04-12 11:32 | disposition home or self-care (01) ==
LOC: M.ERS 10:15
DX: J45.909 Unspecified asthma, uncomplicated (principal); Z20.822 Contact with and (suspected) exposure to COVID-19; I48.91 Unspecified atrial fibrillation; J44.9 Chronic obstructive pulmonary disease, unspecified; Z79.899 Other long term (current) drug therapy; Z88.6 Allergy status to analgesic agent; Z88.1 Allergy status to other antibiotic agents; Z88.2 Allergy status to sulfonamides